=== PATIENT | male | born 1955 | race Caucasian/White ===

== ENCOUNTER 2018-07-31 23:13 | Emergency (ER) | payer OTHER | END 2018-07-31 23:54 | disposition home or self-care (01) | LOC: EDH 23:13 | DX: I10 Essential (primary) hypertension (principal); E11.9 Type 2 diabetes mellitus without complications; F41.9 Anxiety disorder, unspecified; G89.29 Other chronic pain; Z98.890 Other specified postprocedural states ==

== ENCOUNTER 2018-08-03 16:43 | Emergency (ER) | payer OTHER ==
[2018-08-03 17:40] LABS: APPEARANCE,URINE CLEAR (CLEAR); BILIRUBIN,URINE NEGATIVE (NEGATIVE); COLOR,URINE YELLOW (YELLOW); GLUCOSE, URINE (UA) >=1000 mg/dL (NEGATIVE); KETONES,URINE NEGATIVE (NEGATIVE); LEUKOCYTE ESTERASE ,URINE NEGATIVE (NEGATIVE); NITRATE,URINE NEGATIVE (NEGATIVE); OCCULT BLOOD,URINE NEGATIVE (NEGATIVE); PROTEIN,URINE NEGATIVE (NEGATIVE); UROBILINOGEN,URINE 0.2 mg/dL (0.2-1.0)
[2018-08-03 17:47] LABS: AMPHET/METH SCREEN,URINE NEGATIVE (NEGATIVE); BARBITURATE SCREEN, URINE NEGATIVE (NEGATIVE); BENZODIAZEPINES SCREEN,URINE NEGATIVE (NEGATIVE); CANNABINOID SCREEN,URINE NEGATIVE (NEGATIVE); COCAINE SCREEN,URINE NEGATIVE (NEGATIVE); OPIATE SCREEN,URINE NEGATIVE (NEGATIVE); PHENCYCLIDINE SCREEN,URINE NEGATIVE (NEGATIVE)
[2018-08-03 17:52] LABS: BASOPHILS % (AUTO) 0.6 % (0.0-5.0); EOSINOPHILS % (AUTO) 0.8 % (0.0-8.0); HEMATOCRIT 42.3 % (42-54); LYMPHOCYTES % (AUTO) 28.3 % (21.0-51.0); MEAN CORPUSCULAR HEMOGLOBIN 30.6 pg (27.0-33.0); MEAN CORPUSCULAR HGB CONC 33.7 g/dL (32.0-36.0); MEAN CORPUSCULAR VOLUME 90.9 fL (79-99); MONOCYTES % (AUTO) 5.9 % (3.0-13.0); NEUTROPHILS % (AUTO) 64.4 % (40.0-77.0); NUCLEATED RED BLOOD CELLS 0.1 % (0.0-0.19); PLATELET COUNT (AUTO) 199 K/uL (130-400); RED BLOOD CELL COUNT(AUTO) 4.65 MIL/uL (4.50-6.20); RED CELL DISTRIBUTION WIDTH 17.6 % (11.0-15.5); WHITE BLOOD COUNT (AUTO) 7.1 K/uL (4.8-10.8)
[2018-08-03 18:00] LABS: CARBON DIOXIDE 31 mmol/L (21-32); CHLORIDE 97 mmol/L (101-111); CREATININE 1.1 mg/dL (0.5-1.5); GLOMERULAR FILTR. RATE CALC 72 mL/min (>60); GLUCOSE,RANDOM 283 mg/dL (70-105); POTASSIUM 3.7 mmol/L (3.5-5.1); SODIUM SERUM 135 mmol/L (136-145); UREA NITROGEN, BLOOD 21 mg/dL (7-18)
[2018-08-03 18:04] LABS: ALANINE AMINOTRANSFERASE 91 U/L (12-78); ALBUMIN 2.9 g/dL (3.5-5.0); ALCOHOL, BLOOD < 3 mg/dL (0-10); ASPARTATE AMINOTRANSFERASE 58 U/L (10-37); BILIRUBIN,TOTAL 0.7 mg/dL (0.2-1.0); SALICYLATE 3.2 mg/dL (2.8-20.0); TOTAL PROTEIN, SERUM 6.5 g/dL (6.0-8.3)
[2018-08-03 18:05] LABS: ACETAMINOPHEN < 1 mcg/mL (10-29)
[2018-08-03] MEDS ORDERED: ACETAMINOPHEN 325 MG TAB ONE (18:27)
[2018-08-03] MEDS ORDERED: GABAPENTIN 300 MG CAPSULE ONE (18:32)
[2018-08-03] MEDS ORDERED: GABAPENTIN 100 MG CAPSULE ONE (18:32)
== END 2018-08-03 21:48 | disposition home or self-care (01) ==
LOC: EDH 16:43
DX: F10.239 Alcohol dependence with withdrawal, unspecified (principal); R51 Headache; R06.02 Shortness of breath; E11.9 Type 2 diabetes mellitus without complications; I10 Essential (primary) hypertension; F41.9 Anxiety disorder, unspecified; G89.29 Other chronic pain; Z98.890 Other specified postprocedural states
CPT/HCPCS: 36415; 80053; 80305; 81003; 85025; 93005; 99285; G0480 ×2; G0481